=== PATIENT | female | born 1990 | race Caucasian/White ===

== ENCOUNTER 2024-09-15 17:36 | Emergency (ER) | payer BC ==
[2024-09-15] MEDS: cefTRIAXone 1 GM, Lidocaine 1% 2.1 ML IM ONE (17:54)
[2024-09-15] MEDS: fentaNYL 100 MCG/2 ML SDV IM STA (17:54)
[2024-09-15] MEDS: Ondansetron 4 MG Tab.DIS PO ONE (17:55)
== END 2024-09-15 19:15 | disposition home or self-care (01) ==
LOC: JD.ED 17:36
DX: S63.286A Dislocation of proximal interphalangeal joint of right little finger, initial encounter (principal); Z88.2 Allergy status to sulfonamides; Z79.899 Other long term (current) drug therapy; W10.9XXA Fall (on) (from) unspecified stairs and steps, initial encounter
CPT/HCPCS: 12001; 26770; 73140; 96372; 99283; A9270; J0696; J2003; J3010